=== PATIENT | female | born 1955 | race Caucasian/White ===

== ENCOUNTER 2018-01-27 08:55 | Outpatient (REF) | payer BC, SELFPAY ==
[2018-01-27 22:42] LABS: Cholesterol 231 mg/dL (50-200); HDL Cholesterol 47 mg/dL (40-60); LDL CHOLESTEROL 147 mg/dL (<100); Triglyceride 184 mg/dL (30-150)
== END 2018-01-27 09:15 ==
LOC: NCHCN 08:55
PROVIDERS: PCP Family Medicine; Visit Provider Family Medicine
DX: Z00.00 Encounter for general adult medical examination without abnormal findings (principal); Z13.220 Encounter for screening for lipoid disorders
CPT/HCPCS: 80061; 83721

== ENCOUNTER 2018-06-21 01:30 | Outpatient (CLI) | payer OTHER, SELFPAY ==
--- NOTE | 2018-06-21 19:49 | DI.RAD_ITS ---
SYMPTOM/DIAGNOSIS: RT KNEE PAIN, M25.561, S/P FALL RIGHT KNEE: The bony structures are normally mineralized. There are mild degenerative changes. There is no evidence of a fracture or dislocation.
== END 2018-06-21 01:50 ==
PROVIDERS: PCP Family Medicine; Visit Provider Nurse Practitioner Family
DX: S89.81XD Other specified injuries of right lower leg, subsequent encounter (principal)
CPT/HCPCS: 73562

== ENCOUNTER 2019-02-24 11:02 | Outpatient (CLI) | payer BC, SELFPAY ==
--- NOTE | 2019-02-24 13:16 | DI.RAD_ITS ---
EXAM: XR CHEST 2V PA AND LATERAL INDICATION: PNEUMONIA, J18.9. COMPARISON: No exams were available for comparison TECHNIQUE: 2D digital imaging was performed. FINDINGS: Heart size and pulmonary vasculature are within normal limits. There are increased lung markings in the left lower lobe adjacent to the heart. The lungs are otherwise clear. No pleural effusion or pn eumothorax is identified. The bones are intact. IMPRESSION: Left basilar infiltrate suspicious for pneumonia.
== END 2019-02-24 11:22 ==
PROVIDERS: PCP Family Medicine; Visit Provider Family Medicine
DX: R91.8 Other nonspecific abnormal finding of lung field (principal); J18.9 Pneumonia, unspecified organism
CPT/HCPCS: 71046

== ENCOUNTER 2019-04-26 16:08 | Outpatient (REF) | payer BC, SELFPAY ==
--- NOTE | 2019-04-26 15:45 | PAPFT_PTH ---
PATIENT: Karon Ray LOC: [facility] U#:[id number] AGE/SX: 63/F ROOM: RE04/26/[address]: Aylin Francis NP : 1955 BED: DIS: 04/26/2019 SPEC #: [id number] RECD: 04/26/19 17:20 STATUS: ASIA DIAZ #: [id number] CHELSI: 04/26/19 15:[address]: Aylin Francis NP DEPT: [facility] Cytology RECD BY: Merry Escalera ENTERED: 04/26/19 17:20 SP TYPE: PAPFT OTHR DR: Windy Marie V Tissues: 1 - CX/ENDOCX FOR PAP SMEARS Procedures: PAP THIN PREP/[facility] Screening Comments: [id number] (UNSATISFACTORY FOR EVALUATION)
== END 2019-04-26 16:28 ==
LOC: LBN 16:08
PROVIDERS: PCP Family Medicine; Visit Provider Nurse Practitioner Women's Health
DX: Z12.4 Encounter for screening for malignant neoplasm of cervix (principal); Z11.51 Encounter for screening for human papillomavirus (HPV)
CPT/HCPCS: 88142

== ENCOUNTER 2020-03-29 17:35 | Outpatient (REF) | payer MEDICAID, SELFPAY ==
--- NOTE | 2020-03-29 13:30 | PAPFT_PTH ---
PATIENT: Karon Ray LOC: [facility] U#:[id number] AGE/SX: 64/F ROOM: RE03/29/[address]: Kelly Amador : 1955 BED: DIS: 03/29/2020 SPEC #: [id number] RECD: 03/29/20 17:41 STATUS: TOMMIEMarcos REArchie #: [id number] CHELSI: 03/29/20 13:[address]: Kelly Amador DEPT: [facility] Cytology RECD BY: Merry Escalera ENTERED: 03/29/20 17:42 SP TYPE: PAPFT OTHR DR: Windy Marie V Tissues: 1 - CX/ENDOCX FOR PAP SMEARS Procedures: PAP THIN PREP/[facility] Screening HPV DNA PROBE Comments: [id number]
== END 2020-03-29 17:55 ==
LOC: LBN 17:35
PROVIDERS: PCP Family Medicine; Visit Provider Obstetrics & Gynecology Gynecology
DX: Z12.4 Encounter for screening for malignant neoplasm of cervix (principal); Z11.51 Encounter for screening for human papillomavirus (HPV)
CPT/HCPCS: 88142; 87624

== ENCOUNTER 2020-07-16 15:18 | Outpatient (REF) | payer MEDICAID, SELFPAY ==
[2020-07-18 14:02] LABS: Helicobacter pylori Ag, Feces Negative (Negative)
== END 2020-07-16 15:19 | disposition home or self-care (01) ==
LOC: NCHCN 15:18
PROVIDERS: PCP Family Medicine; Visit Provider Family Medicine
DX: K59.00 Constipation, unspecified (principal); R11.0 Nausea
CPT/HCPCS: 87338

== ENCOUNTER 2020-09-13 02:31 | Outpatient (CLI) | payer MEDICAID, SELFPAY ==
[2020-09-13 09:11] LABS: Iron 98 ug/dL (50-170); Total Iron Binding Capacity 263 ug/dL (250-450); Transferrin Sat 37 % (15-50)
[2020-09-13 09:41] LABS: ALT 38 U/L (14-59); AST 28 U/L (15-37); Albumin 3.7 g/dL (3.4-5.0); Alkaline Phosphatase 75 U/L (46-116); Anion Gap 7.7 mmol/L (3-11); BUN 10 mg/dL (7-18); Bilirubin, Total 0.6 mg/dL (0.2-1.0); CO2 27.3 mmol/L (21.0-32.0); CREATININE 0.8 mg/dL (0.55-1.02); Calcium 8.9 mg/dL (8.5-10.1); Calculated LDL 158 mg/dL (<100); Chloride 101 mmol/L (98-107); Cholesterol 238 mg/dL (<200); Ferritin 124 ng/mL (8-252); Glucose 91 mg/dL (74-106); HDL Cholesterol 44 mg/dL (40-60); Magnesium 2.2 mg/dL (1.8-2.4); Potassium 4.5 mmol/L (3.5-5.1); Sodium 136 mmol/L (136-145); TSH 1.79 uIU/mL (0.36-3.74); Total Protein 6.7 g/dL (6.4-8.2); Triglyceride 181 mg/dL (<150); Vitamin B12 940 pg/mL (193-986)
[2020-09-13 09:42] LABS: Folate > 20.0 ng/mL (8.6-20.0)
[2020-09-13 10:00] LABS: FREE T4 1.14 ng/dL (0.76-1.46)
[2020-09-13 17:11] LABS: T3,Free 3.5 pg/mL (2.8-5.3)
[2020-09-16 01:43] LABS: Vitamin D 25 Total 37.2 ng/mL (30-100)
== END 2020-09-13 02:32 | disposition home or self-care (01) ==
LOC: LBO 02:31
PROVIDERS: PCP Family Medicine; Visit Provider Naturopath
DX: E78.5 Hyperlipidemia, unspecified (principal); E04.9 Nontoxic goiter, unspecified; R77.8 Other specified abnormalities of plasma proteins; I10 Essential (primary) hypertension; E53.8 Deficiency of other specified B group vitamins; E55.9 Vitamin D deficiency, unspecified
CPT/HCPCS: 36415; 80053; 80061; 82306; 82607; 82728; 82746; 83540; 83550; 83735; 84439; 84443; 84481

== ENCOUNTER 2022-02-05 09:34 | Outpatient (REF) | payer MEDICAID, SELFPAY ==
[2022-02-05 16:27] LABS: Calculated LDL 153 mg/dL (<100); Cholesterol 239 mg/dL (<200); HDL Cholesterol 46 mg/dL (40-60); Triglyceride 203 mg/dL (<150)
== END 2022-02-05 09:35 | disposition home or self-care (01) ==
LOC: NCHCN 09:34
PROVIDERS: PCP Family Medicine; Visit Provider Family Medicine
DX: E78.5 Hyperlipidemia, unspecified (principal)
CPT/HCPCS: 80061

== ENCOUNTER 2022-09-28 15:11 | Outpatient (CLI) | payer MEDICARE, OTHER, SELFPAY ==
[2022-09-28 13:59] LABS: Anion Gap 5.7 mmol/L (3-11); BUN 12 mg/dL (7-18); CO2 29.3 mmol/L (21.0-32.0); CREATININE 0.7 mg/dL (0.55-1.02); Calcium 8.7 mg/dL (8.5-10.1); Chloride 97 mmol/L (98-107); Estimated GFR 95.92 (mL/min/1.73m2); Glucose 92 mg/dL (74-106); Sodium 132 mmol/L (136-145)
== END 2022-09-28 15:12 | disposition home or self-care (01) ==
LOC: LBO 15:11
PROVIDERS: PCP Family Medicine; Visit Provider Family Medicine
DX: Z00.00 Encounter for general adult medical examination without abnormal findings (principal)
CPT/HCPCS: 36415; 80048

== ENCOUNTER 2023-02-03 02:12 | Outpatient (CLI) | payer MEDICARE, OTHER, SELFPAY ==
[2023-02-03 09:58] LABS: BUN 14 mg/dL (7-18); CREATININE 0.8 mg/dL (0.55-1.02); Calcium 9.4 mg/dL (8.5-10.1); Calculated LDL 164 mg/dL (<100); Chloride 104 mmol/L (98-107); Cholesterol 247 mg/dL (<200); Estimated GFR 81.72 (mL/min/1.73m2); Glucose 100 mg/dL (74-106); HDL Cholesterol 54 mg/dL (40-60); Potassium 4.4 mmol/L (3.5-5.1); Sodium 140 mmol/L (136-145); Triglyceride 146 mg/dL (<150)
== END 2023-02-03 02:13 | disposition home or self-care (01) ==
LOC: LBO 02:12
PROVIDERS: PCP Family Medicine; Visit Provider Family Medicine
DX: I10 Essential (primary) hypertension (principal); E78.5 Hyperlipidemia, unspecified
CPT/HCPCS: 36415; 80048; 80061

== ENCOUNTER 2023-06-03 03:03 | Outpatient (CLI) | payer MEDICARE, OTHER, SELFPAY ==
[2023-06-03 11:49] LABS: AST 22 U/L (15-37); Creatine Kinase 59 U/L (26-192)
[2023-06-03 12:21] LABS: Calculated LDL 156 mg/dL (<100); Cholesterol 237 mg/dL (<200); HDL Cholesterol 50 mg/dL (40-60); Triglyceride 159 mg/dL (<150)
== END 2023-06-03 03:04 | disposition home or self-care (01) ==
LOC: LBO 03:04
PROVIDERS: PCP Family Medicine; Visit Provider Family Medicine
DX: E78.5 Hyperlipidemia, unspecified (principal)
CPT/HCPCS: 36415; 80061; 82550; 84450

== ENCOUNTER 2023-11-09 08:14 | Outpatient (CLI) | payer MEDICARE, OTHER, SELFPAY ==
[2023-11-09 08:25] LABS: AST 23 U/L (15-37); Calculated LDL 95 mg/dL (<100); Cholesterol 170 mg/dL (<200); Creatine Kinase 72 U/L (26-192); HDL Cholesterol 53 mg/dL (40-60); Triglyceride 110 mg/dL (<150)
== END 2023-11-09 08:15 | disposition home or self-care (01) ==
LOC: LBO 08:14
PROVIDERS: PCP Family Medicine; Visit Provider Family Medicine
DX: E78.5 Hyperlipidemia, unspecified (principal)
CPT/HCPCS: 36415; 80061; 82550; 84450

== ENCOUNTER 2024-01-14 13:35 | Outpatient (REF) | payer MEDICARE, OTHER, SELFPAY ==
[2024-01-14 14:30] LABS: Anion Gap 8.9 mmol/L (3-11); BUN 13 mg/dL (7-18); CO2 26.1 mmol/L (21.0-32.0); CREATININE 0.7 mg/dL (0.55-1.02); Calcium 9.1 mg/dL (8.5-10.1); Chloride 104 mmol/L (98-107); Estimated GFR 95.32 (mL/min/1.73m2); Glucose 87 mg/dL (74-106); Potassium 4.5 mmol/L (3.5-5.1); Sodium 139 mmol/L (136-145)
== END 2024-01-14 13:36 | disposition home or self-care (01) ==
LOC: NCHCN 13:35
PROVIDERS: PCP Family Medicine; Visit Provider Family Medicine
DX: R10.31 Right lower quadrant pain (principal)
CPT/HCPCS: 80048

== ENCOUNTER 2024-01-26 01:57 | Outpatient (CLI) | payer MEDICARE, OTHER, SELFPAY ==
[2024-01-26] MEDS: Barium Sulfate 2% W/V-Berry Smoothie 450 ML BTL PO ×2 (12:18→12:19)
[2024-01-26] MEDS: Normal Saline - Diluent 50 ML VIAL IJ (14:31)
[2024-01-26] MEDS: Omnipaque 350 MG/ML 500 ML BTL-Imaging package 60 ML IJ (14:31)
[2024-01-26] MEDS: Omnipaque 350 MG/ML 50 ML BTL 40 ML IJ (14:32)
--- NOTE | 2024-01-26 14:52 | DI.CT_ITS ---
Exam(s) CT ABDOMEN PELVIS W EXAM: CT ABDOMEN PELVIS W CLINICAL HISTORY: RT LOWER QUAD PAIN, R10.31 TECHNIQUE: Imaging Protocol: Axial computed tomography images with coronal and sagittal reformatted images were created and reviewed. CONTRAST MATERIAL: Intravenous: Omnipaque 350 Contrast volume:100 mL Oral: Yes COMPARISON: No exams were available for comparison FINDINGS: ABDOMEN: Lung Bases: Normal where visualized. Liver: Normal density. No measurable mass. There is a cyst in the right lobe of the liver. No suspic ious hepatic masses are present. Portal, Superior Mesenteric, and Splenic Veins: Unremarkable. Gallbladder and Biliary Tract: No radiodense calculus or dilation. Pancreas: Normal density, no abnormal calcifications or inflammatory process. Spleen: Normal. Adrenals: No masses seen. Kidneys: Normal size, contour and axis. No radiodense stones or obstructive uropathy. No masses seen. Abdominal Aorta: Abdominal portion non-dilated. Atherosclerotic calcification is present. Bowel: No obstruction or bowel wall thickening. No evidence of appendicitis. Peritoneal Cavity: No ascites, collection or mesenteric inflammatory response. No free air. Lymph Nodes: Within normal limits. Bones: Within normal limits for the patient's age. There is a left convex lumbar scoliosis. Soft Tissues: There is a small fat containing umbilical hernia. There is a fat containing midline up per anterior abdominal wall hernia present. (Series 10, image 81). PELVIS: Bladder: Symmetric distention, no gross wall thickening. Reproductive Organs: There is a 4.7 cm fibroid in the posterior uterine fundus. Lymph Nodes: Within normal limits. Bones: Within normal limits for the patient's age. IMPRESSION: 1. Moderate size fat containing midline upper abdominal wall hernia. 2. Small fat containing umbilical hernia. 3. Uterine fibroid. 4. No evidence of appendicitis, hydronephrosis or cholelithiasis. RADIATION DOSE DELIVERED: 780.29mGy.cm Total DLP DATA REPOSITORY: All CT scans at this facility are submitted to the National Radiology Data Registry (NRDR) Dose Index Registry (DIR) with the [employer] ([employer]). RADIATION OPTIMIZATION: All CT scans at this facility use at least one of these dose optimization te chniques: automated exposure control; mA and/or kV adjustment per patient size (includes targeted exa ms where dose is matched to clinical indication); or iterative reconstruction.
== END 2024-01-26 02:17 ==
LOC: DI 01:58
PROVIDERS: PCP Family Medicine; Visit Provider Family Medicine
DX: R10.31 Right lower quadrant pain (principal); K43.9 Ventral hernia without obstruction or gangrene
CPT/HCPCS: 74177; Q9967

== ENCOUNTER 2024-09-05 03:35 | Outpatient (CLI) | payer MEDICARE, OTHER, SELFPAY ==
[2024-09-05 10:19] LABS: Hemoglobin A1C 5.7 % (<5.7)
[2024-09-05 10:58] LABS: AST 26 U/L (15-37); Calculated LDL 124 mg/dL (<100); Cholesterol 206 mg/dL (<200); HDL Cholesterol 53 mg/dL (>or=50); Triglyceride 146 mg/dL (<150)
[2024-09-05 11:14] LABS: Creatine Kinase 154 U/L (26-192)
[2024-09-05 19:44] LABS: Hepatitis C Ab w Rflx HCV PCR Negative (Negative)
== END 2024-09-05 03:36 | disposition home or self-care (01) ==
LOC: LBO 03:35
PROVIDERS: PCP Family Medicine; Visit Provider Family Medicine
DX: E78.5 Hyperlipidemia, unspecified (principal); Z13.1 Encounter for screening for diabetes mellitus
CPT/HCPCS: 36415; 80061; 82550; 86803; 83036; 84450